=== PATIENT | female | born 1935 | race Two or more races ===

== ENCOUNTER 2017-06-06 19:56 | Inpatient (IN) | payer OTHER ==
[~2017-06-06] VITALS: Ht 154.9 cm; Wt 86.6 kg
--- NOTE | 2017-06-06 19:56 | NUR ---
TO BED 10 BIB PARAMEDICS C/O SYNCOPE WHILE SITTIN IN A CHAIR PER PT DAUGHTER REPORT. PT AAOX4 NO ACUTE DISTRESS NOTED, RESP EVEN AND UNLABORED. PLACE PT ON CARDIAC MONITORING, CONTINUOUS POX, NOTED PT A-FIB ON CARDIAC MONITORING HR-124. 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 ER MD AT BEDSIDE TO EVAL PT WITH ORDERS RECEIVED. WILL CARRY OUT ORDERS.
[2017-06-06] MEDS ORDERED: ONDANSETRON HCL/PF 4 MG/2 ML VIAL ONE (20:07)
--- NOTE | 2017-06-06 20:12 | NUR ---
PT MEDICATED BY RN PER ER MD ORDER.
[2017-06-06] MEDS ORDERED: DILTIAZEM HCL 50 MG IV ONE (20:17)
--- NOTE | 2017-06-06 20:20 | NUR ---
BLOOD DRAWN BY DIRECTOR STARS.
--- NOTE | 2017-06-06 20:24 | NUR ---
PT TRANSPORTED TO RADIOLOGY FOR CT ABD/PELVIS.
[2017-06-06 20:28] LABS: BASOPHILS # (AUTO) 0.1 /CMM (0.0-0.2); BASOPHILS % (AUTO) 0.7 % (0.0-2.0); EOSINOPHILS % (AUTO) 0.7 % (0.0-6.0); HEMATOCRIT 28 % (33-45); HEMOGLOBIN 9.3 g/dL (11.5-14.8); LYMPHOCYTES # (AUTO) 3.1 /CMM (0.8-4.8); LYMPHOCYTES % (AUTO) 19.2 % (20.0-44.0); MEAN CORPUSCULAR HGB CONC 33 g/dl (31.0-36.0); MEAN CORPUSCULAR VOLUME 69 fL (82-100); MONOCYTES # (AUTO) 1.2 /CMM (0.1-1.30); MONOCYTES % (AUTO) 7.3 % (2.0-12.0); NEUTROPHILS # (AUTO) 11.7 /CMM (1.8-8.9); NEUTROPHILS % (AUTO) 72.1 % (43.0-81.0); PLATELET COUNT (AUTO) 245 /CMM (150-450); RDW COEFFICIENT OF VARIATION 18.3 (11.5-15.0); RED BLOOD CELL COUNT(AUTO) 4.13 MIL/uL (4.0-5.2); WHITE BLOOD COUNT (AUTO) 16.2 K/uL (4.3-11.0)
[2017-06-06] MEDS ORDERED: ONDANSETRON HCL/PF 4 MG/2 ML VIAL IVP ONE (20:30)
[2017-06-06] MEDS ORDERED: IV NS 0.9% 1,000 ML BAG IV ONE ×2 (20:30→22:00)
[2017-06-06] MEDS ORDERED: DILTIAZEM HCL 50 MG IV IV ONE (20:30)
[2017-06-06 20:38] LABS: CALCIUM, SERUM 8.5 mg/dL (8.5-10.1); CARBON DIOXIDE 24 mmol/L (21-32); CHLORIDE 97 mmol/L (98-107); GLUCOSE 184 mg/dL (74-106); POTASSIUM 3.3 mmol/L (3.5-5.1); SODIUM SERUM 131 mmol/L (136-145); UREA NITROGEN, BLOOD 16 mg/dL (7-18)
[2017-06-06 20:45] LABS: TROPONIN I 0.097 ng/mL (0.00-0.056)
[2017-06-06 20:50] LABS: ALANINE AMINOTRANSFERASE 11 U/L (12-78); ALBUMIN 2.9 g/dL (3.4-5.0); ALKALINE PHOSPHATASE 51 U/L (46-116); ASPARTATE AMINOTRANSFERASE 15 U/L (15-37); B-TYPE NATRIURETIC PEPTIDE 3185 PG/ML (0-125); BILIRUBIN,DIRECT 0.2 mg/dL (0.0-0.2); BILIRUBIN,TOTAL 0.4 mg/dL (0.2-1.0); TOTAL PROTEIN, SERUM 7.7 g/dL (6.4-8.2)
[2017-06-06 20:51] LABS: INR 1.03 (0.87-1.13)
--- NOTE | 2017-06-06 21:07 | NUR ---
NATALIO HALLMAN AT BEDSIDE TO RE-EVAL PT.
--- NOTE | 2017-06-06 21:20 | NUR ---
[facility] PAGED, CAN CRIMPER
--- NOTE | 2017-06-06 21:26 | NUR ---
ER SPOKE TO DR. MANRIQUEZ REGARDING PT ADMISSION.
[2017-06-06] MEDS ORDERED: ASPIRIN 325 MG TABLET PO ONE (21:30)
[2017-06-06] MEDS ORDERED: AZITHROMYCIN 500 MG in IV D5W 250 ML IV ONE (21:30)
[2017-06-06] MEDS ORDERED: CEFTRIAXONE 1GM BAG (ER ONLY) 1 GM/50 ML PIGGYBACK IV ONE (21:30)
--- NOTE | 2017-06-06 21:38 | NUR ---
CALLED NURSING SUP. FOR TELE BED
[2017-06-06] MEDS ORDERED: CEFTRIAXONE 1GM BAG (ER ONLY) 50 ML IV ONE (21:42)
[2017-06-06] MEDS ORDERED: ASPIRIN 325 MG TABLET ONE (21:43)
--- NOTE | 2017-06-06 21:46 | NUR ---
TELE 112-1
[2017-06-06 21:54] LABS: BAND % (MANUAL) 2 % (0.0-5.0); LYMPHOCYTES % (MANUAL) 15 % (16-48); MONOCYTES % (MANUAL) 10 % (0-11.0); NEUTROPHILS % (MANUAL) 73 (42-76)
--- NOTE | 2017-06-06 22:10 | NUR ---
REPORT CALLED TO PRIZER HANDRYLAND MOYA. WILL TRANSPORT PT VIA ACLS PROTOCOL.
[2017-06-06] MEDS ORDERED: AZITHROMYCIN 500 MG VIAL ONE (23:02)
--- NOTE | 2017-06-06 23:30 | NUR ---
STRUCTURAL STEEL PAINTER NOTES PT RECEIVED FROM ER. DX: NSTEMI. PT A&O3 TURKMEN SPEAKING. PT ON TELE MONITOR, A-FIB 86. IV IN R HAND WITH 0.9 NS INFUSING @75. FAMILY AT BEDSIDE.PLAN OF CARE DISCUSSED WITH PT AND FAMILY. ALL ADMISSION ORDERS COMPLETED. ALL SAFETY MEASURES TAKEN. BED IN LOW LOCKED POSITION, CALL LIGHT IN REACH.BED ALARM ENGAGED. WILL CONT TO MONITOR.
[2017-06-06] MEDS ORDERED: IV NS 0.9% 1,000 ML IV PRN (23:37)
[2017-06-07] VITALS: BP 82/55
[2017-06-07] MEDS ORDERED: HYDROCODONE/APAP 5/325MG 1 EACH TABLET PO PRN
[2017-06-07] MEDS ORDERED: ACETAMINOPHEN 325 MG TABLET PO PRN
[2017-06-07] MEDS ORDERED: MAGNESIUM HYDROXIDE 30 ML UDC PO PRN
[2017-06-07] MEDS ORDERED: ONDANSETRON HCL/PF 4 MG/2 ML VIAL IVP PRN
[2017-06-07] MEDS ORDERED: ENOXAPARIN SODIUM 40 MG/0.4 ML DISP.SYRIN SQ SCH
[2017-06-07] MEDS ORDERED: Z GUARD REMEDY 2 OZ OINT TP PRN
[2017-06-07] MEDS ORDERED: ZOLPIDEM TARTRATE 5 MG TABLET PO PRN
[2017-06-07] MEDS ORDERED: ENOXAPARIN SODIUM 100 MG/ML DISP.SYRIN SQ SCH
[2017-06-07] MEDS ORDERED: MAG HYDROX/AL HYDROX/SIMETH 30 ML UDC PO PRN
[2017-06-07] MEDS: METOPROLOL TARTRATE 25 MG TABLET PO SCH ×3 (00:30→22:54)
[2017-06-07] MEDS: ASPIRIN 81 MG TAB.CHEW PO SCH ×2 (00:42→08:32)
--- NOTE | 2017-06-07 03:00 | NUR ---
RN NOTES PT WENT TO REST ROOM, ON RETURNING TO THE BED SHE PASSED OUT, B/P 81/39, BS 174. PT VOMITED AFTER SHE AROSE. PER DR MANRIQUEZ, CONT. FLUIDS, GIVE ZOFRAN FOR N&V, POTASSIUM ORDERED, AND CONT TO MONITOR PT. ALL ORDERS CARRIED OUT.
[2017-06-07 04:00] VITALS: BP 91/50
[2017-06-07] MEDS ORDERED: POTASSIUM CL. PREMIX PERIPHER. 50 ML IV SCH ×2 (04:00→07:30)
--- NOTE | 2017-06-07 05:28 | NUR ---
RN NOTES UNABLE TO INFUSE POTASSIUM CHLORIDE ORDERED, POTASSIUM CHLORIDE UNAVAILABLE UNTIL PHARMACY OPENS AT 7:00 AM. WILL ENDORSE TO AM RN.
--- NOTE | 2017-06-07 06:29 | NUR ---
RN CLOSING NOTES PATIENT RESTING AT THIS TIME.DAUGHTER AT BEDSIDE. NO RESPIRATORY DISTRESS NOTED. SIDE RAILS UP AND LOCKED. BED KEPT AT LOWEST POSITION. CALL LIGHT KEPT WITHIN EASY REACH. CONTINUITY OF CARE ENDORSED TO AM NURSE.
--- NOTE | 2017-06-07 07:30 | NUR ---
RN INITIAL NOTE: PATIENT IN STABLE CONDITION AT THIS TIME ON ROOM AIR SAMMARINESE SPEAKING ABLE TO MAKE NEEDS KNOWN PATIENT DAUGHTER AT BEDSIDE PATIENT CURRENTLY HAS IV RIGHT HAND TOLERATING WELL PLAN OF CARE DISCUSSED WITH THE PATIENT AND FAMILY PATIENT AWAITING POTASSIUM CHLORIDE REPLACEMENT. RN WILL CONTINUE TO FOLLOW PATIENT REMAINS ON BED RESTRICTION PER MD.
[2017-06-07 07:36] LABS: ALANINE AMINOTRANSFERASE 13 U/L (12-78); ALBUMIN 2.5 g/dL (3.4-5.0); ALKALINE PHOSPHATASE 51 U/L (46-116); ASPARTATE AMINOTRANSFERASE 14 U/L (15-37); B-TYPE NATRIURETIC PEPTIDE 3539 PG/ML (0-125); BILIRUBIN,TOTAL 0.4 mg/dL (0.2-1.0); CARBON DIOXIDE 24 mmol/L (21-32); CHLORIDE 103 mmol/L (98-107); CREATININE 0.8 mg/dL (0.6-1.3); GLUCOSE 130 mg/dL (74-106); MAGNESIUM 2.1 mg/dL (1.8-2.4); PHOSPHORUS 3.2 mg/dL (2.5-4.9); POTASSIUM 3.6 mmol/L (3.5-5.1); SODIUM SERUM 136 mmol/L (136-145); TOTAL PROTEIN, SERUM 7.2 g/dL (6.4-8.2); UREA NITROGEN, BLOOD 12 mg/dL (7-18)
[2017-06-07 07:38] LABS: CHOLESTEROL 110 mg/dL (<200); HDL CHOLESTEROL 16 mg/dL (40-60); LDL 80 mg/dL (0-99); THYROID STIMULATING HORMONE 3.129 uIU/mL (0.358-3.74); TRIGLYCERIDES 104 mg/dL (30-150)
[2017-06-07 08:00] VITALS: BP_SYST 104; BP_SYST 123; BP_SYST 125; BP_SYST 126; BP_DIAS 57; BP_DIAS 60; BP_DIAS 69
[2017-06-07 08:02] LABS: BASOPHILS % (AUTO) 0.3 % (0.0-2.0); EOSINOPHILS % (AUTO) 0.2 % (0.0-6.0); HEMATOCRIT 27 % (33-45); HEMOGLOBIN 8.5 g/dL (11.5-14.8); LYMPHOCYTES # (AUTO) 1.6 /CMM (0.8-4.8); MEAN CORPUSCULAR HGB CONC 32 g/dl (31.0-36.0); MEAN CORPUSCULAR VOLUME 69 fL (82-100); NEUTROPHILS # (AUTO) 9.5 /CMM (1.8-8.9); NEUTROPHILS % (AUTO) 78.5 % (43.0-81.0); PLATELET COUNT (AUTO) 221 /CMM (150-450); RDW COEFFICIENT OF VARIATION 17.8 (11.5-15.0); RED BLOOD CELL COUNT(AUTO) 3.82 MIL/uL (4.0-5.2); WHITE BLOOD COUNT (AUTO) 12.1 K/uL (4.3-11.0)
[2017-06-07 09:04] LABS: APPEARANCE,URINE CLEAR (CLEAR); BILIRUBIN,URINE NEGATIVE (NEGATIVE); BLOOD, URINE NEGATIVE Ery/uL (NEGATIVE); COLOR,URINE YELLOW (YELLOW); KETONES,URINE 1+ (NEGATIVE); LEUKOCYTE ESTERASE ,URINE TRACE (NEGATIVE); NITRITE, URINE NEGATIVE (NEGATIVE); PROTEIN,URINE NEGATIVE (NEGATIVE); UGLUCOSE NEGATIVE (NEGATIVE); UROBILINOGEN,URINE 0.2 EU/dL (0.2)
[2017-06-07 09:35] LABS: RBC,URINE 0-2 /HPF (0-2)
[2017-06-07 09:36] LABS: BACTERIA,URINE Rare /HPF (None Seen); SQUAMOUS EPITHELIAL CELL,UR Few /HPF (None Seen)
[2017-06-07] MEDS ORDERED: POTASSIUM CHLORIDE 10 MEQ TABLET.SA PO ONE (10:00)
[2017-06-07] MEDS ORDERED: ASPI-1169 PO (11:36)
[2017-06-07] MEDS ORDERED: DONE10TA44 PO (11:36)
[2017-06-07] MEDS ORDERED: BENA10TA9 PO (11:36)
[2017-06-07] MEDS ORDERED: GABA-534 PO (11:36)
[2017-06-07] MEDS ORDERED: METF-440 PO (11:36)
[2017-06-07] MEDS ORDERED: SIMV20TA6 PO (11:36)
[2017-06-07] MEDS ORDERED: HYDR25TA4 PO (11:36)
[2017-06-07] MEDS ORDERED: OMEP20TA5 PO (11:36)
[2017-06-07 12:00] VITALS: BP 103/56
[2017-06-07 14:16] LABS: LYMPHOCYTES % (MANUAL) 10 % (16-48); MONOCYTES % (MANUAL) 5 % (0-11.0); NEUTROPHILS % (MANUAL) 85 (42-76)
[2017-06-07 16:00] VITALS: BP 104/60
--- NOTE | 2017-06-07 19:49 | NUR ---
rn note patient has been stable throughout the day plan of care discussed with the patient and the family , vitals stable throughout the day patient Sinus rhythm on the monitor , no complaints of chest pain or Shortness of breath noted at this time patient able to make needs known Austrian speaking MD AND AUTOMOBILE ASSEMBLER HAVE EXPLAINED THE PLAN OF CARE IN DETAIL WITH THE PATIENT AND THE FAMILY UNDERSTANDING OF THE PLAN EXPRESSED. patient has planned transfer to [facility]. continuation of care expressed and given to pm rn for f/u in regards to discharge / transfer and also callling MD for glucose and metformin orders pm rn acknowledged understanding
[2017-06-07 20:00] VITALS: BP 126/60
--- NOTE | 2017-06-07 20:00 | NUR ---
RN NOTES PATIENT IN STABLE CONDITION AT THIS TIME ON 2L NC O2.PATIENT FAMILY AT BEDSIDE PATIENT CURRENTLY HAS IV RIGHT HAND TOLERATING WELL PLAN OF CARE DISCUSSED WITH THE PATIENT AND FAMILY.V/S WNL, SUTURATION 96%.BED IN LOWER LOCKED POSITION,SIDE RAILS UP X2, CALL LIGHT IN REACH. PATIENT ON BED RESTRICTION PER MD. ORDER. WILL CONTINUE TO MONITOR .
[2017-06-07] MEDS ORDERED: CEFTRIAXONE 1 G in IV D5W 50 ML IV SCH (22:00)
[2017-06-07] MEDS ORDERED: ATORVASTATIN 10 MG TABLET PO SCH (22:00)
[2017-06-07] MEDS ORDERED: AZITHROMYCIN 500 MG in IV D5W 250 ML IV SCH (23:00)
[2017-06-07] MEDS ORDERED: INSULIN REGULAR, HUMAN 100 UNIT/ML 3 ML VIAL SQ PRN (23:30)
[2017-06-07] MEDS ORDERED: DEXTROSE 50%-WATER 50 ML DISP.SYRIN IV PRN (23:30)
[2017-06-08] VITALS: BP 136/76
[2017-06-08] MEDS: BLOOD SUGAR DIAGNOSTIC 1 EACH STRIP IN SCH ×2 (00:14→07:30)
[2017-06-08] MEDS ORDERED: IBUPROFEN 400 MG TABLET PO PRN (01:00)
[2017-06-08 04:00] VITALS: BP 126/60
--- NOTE | 2017-06-08 06:33 | NUR ---
TEXTED DR. BLOCK FOR MRI APPROVAL.
--- NOTE | 2017-06-08 06:35 | NUR ---
RN NOTE NO ACUTE CHANGES AT THIS TIME NOTED. PATIENT IS STABLE, V/S WNL. PT IV LINE INFILTRATED AND WAS REMOVED BY RN. PT REFUSED NEW IV LINE AND INSULIN INJECTION DURING MY SHIFT. PT CARE WILL BE ENDORSE TO AM NURSE.
--- NOTE | 2017-06-08 06:42 | NUR ---
TEXTED BACK, ON HOLD FOR NOW, HE WILL LET US KNOW.
[2017-06-08 07:36] LABS: BASOPHILS # (AUTO) 0.1 /CMM (0.0-0.2); BASOPHILS % (AUTO) 1.1 % (0.0-2.0); EOSINOPHILS % (AUTO) 0.2 % (0.0-6.0); HEMATOCRIT 27 % (33-45); HEMOGLOBIN 8.5 g/dL (11.5-14.8); LYMPHOCYTES # (AUTO) 1.9 /CMM (0.8-4.8); MEAN CORPUSCULAR HGB CONC 31 g/dl (31.0-36.0); MEAN CORPUSCULAR VOLUME 69 fL (82-100); MONOCYTES # (AUTO) 1.1 /CMM (0.1-1.30); MONOCYTES % (AUTO) 8.2 % (2.0-12.0); NEUTROPHILS # (AUTO) 9.8 /CMM (1.8-8.9); NEUTROPHILS % (AUTO) 75.5 % (43.0-81.0); PLATELET COUNT (AUTO) 290 /CMM (150-450); RDW COEFFICIENT OF VARIATION 19.4 (11.5-15.0); RED BLOOD CELL COUNT(AUTO) 3.93 MIL/uL (4.0-5.2); WHITE BLOOD COUNT (AUTO) 12.9 K/uL (4.3-11.0)
[2017-06-08 07:59] LABS: CALCIUM, SERUM 8.3 mg/dL (8.5-10.1); CARBON DIOXIDE 24 mmol/L (21-32); CHLORIDE 101 mmol/L (98-107); CREATININE 0.9 mg/dL (0.6-1.3); GLUCOSE 143 mg/dL (74-106); MAGNESIUM 2.3 mg/dL (1.8-2.4); PHOSPHORUS 2.8 mg/dL (2.5-4.9); POTASSIUM 4.3 mmol/L (3.5-5.1); SODIUM SERUM 134 mmol/L (136-145); UREA NITROGEN, BLOOD 14 mg/dL (7-18)
[2017-06-08 08:00] VITALS: BP 124/57
--- NOTE | 2017-06-08 08:00 | NUR ---
RN INITIAL NOTE: PATIENT IN STABLE CONDITION AT THIS TIME ON 2 LITERS NASAL CANULA UKRAINIAN SPEAKING ABLE TO MAKE NEEDS KNOWN PATIENT SON AT BEDSIDE PATIENT CURRENTLY HAS NO IV ACCESS. PLAN OF CARE DISCUSSED WITH THE PATIENT AND FAMILY PATIENT AWAITING PT DISCHARGE. RN WILL CONTINUE TO FOLLOW PATIENT. PT REMAINS ON BED RESTRICTION PER MD DUE TO SYNCOPE.
[2017-06-08] MEDS: ASPIRIN 81 MG TAB.CHEW PO SCH (08:16)
[2017-06-08] MEDS: METOPROLOL TARTRATE 25 MG TABLET PO SCH (08:17)
[2017-06-08 09:37] VITALS: BP 124/57
[2017-06-08 11:36] LABS: NEUTROPHILS % (MANUAL) 81 (42-76)
[2017-06-08 11:37] LABS: LYMPHOCYTES % (MANUAL) 11 % (16-48); MONOCYTES % (MANUAL) 8 % (0-11.0)
--- NOTE | 2017-06-08 13:15 | NUR ---
RN NOTE REPORT GIVEN TO EMS, RN PLACED A 22GAUGE RIGHT AC SL IV. PATIENT TOLERATED WELL WITHOUT ISSUE. PATIENT DAUGHTER IS AT BEDSIDE, AND WILL BE RIDING WITH EMS TO THE HOSPITAL
--- NOTE | 2017-06-08 13:23 | NUR ---
RN NOTE REPORT GIVEN TO THE PRIMARY RECEIVING RN AT [facility] , SISSY MARCELINO PATIEN BED 239A -TELE [phone]. RN ALSO SPOKE WITH DOMINGO DIRECT DISABILITY SPECIALIST AT [phone]
== END 2017-06-08 12:48 | DRG 871 ==
LOC: ER 19:58 → TELE1 21:49
PROVIDERS: ADMIT Internal Medicine; ATTEND Internal Medicine
DX: A41.9 Sepsis, unspecified organism (principal); I21.4 Non-ST elevation (NSTEMI) myocardial infarction; I50.31 Acute diastolic (congestive) heart failure; J15.9 Unspecified bacterial pneumonia; I11.0 Hypertensive heart disease with heart failure; D63.8 Anemia in other chronic diseases classified elsewhere; E11.42 Type 2 diabetes mellitus with diabetic polyneuropathy; I48.0 Paroxysmal atrial fibrillation; N39.0 Urinary tract infection, site not specified; E87.1 Hypo-osmolality and hyponatremia; E86.0 Dehydration; I35.0 Nonrheumatic aortic (valve) stenosis; E78.5 Hyperlipidemia, unspecified; E87.6 Hypokalemia; Z86.73 Personal history of transient ischemic attack (TIA), and cerebral infarction without residual deficits; I25.10 Atherosclerotic heart disease of native coronary artery without angina pectoris
CPT/HCPCS: 36415; 70450-TC; 71045-TC; 80048-TC; 80053-TC; 80061-TC; 80076-TC; 81000-TC; 82962-TC; 83605-TC; 83735-TC; 83880; 84100-TC; 84443-TC; 84484-TC; 85025-TC; 85730-TC; 87040-TC; 87081-TC; 87086-TC; 93307-TC; A4606; J0456; J0696; J1650; J1815; J2405; J3480; J3490; J7030; J7060; Z7610